=== PATIENT | male | born 1965 | race Caucasian/White ===

== ENCOUNTER → 2020-05-22 | Outpatient (CLI) | payer OTHER ==
--- NOTE | 2020-05-23 03:12 | MR ---
EXAMINATION TYPE: MR knee LT wo con DATE OF EXAM: 05/22/2020 COMPARISON: None HISTORY: Left knee pain, injured 3 months ago Multiplanar multiecho imaging of the left knee was performed with no contrast. There is moderate knee joint effusion. The anterior and posterior cruciate ligaments are intact. Jose Alejandro ateral ligaments are intact. There is some thinning and increased signal in the posterior horn medial meniscus. This is consistent with complex tear. The other menisci appear intact. There is minor spur ring at the patellofemoral joint. I see no focal bone destruction. There is subcutaneous edema around the anterior knee. There is 1.8 cm popliteal cyst. IMPRESSION: Complex tear of the posterior horn medial meniscus. Moderate size knee joint effusion with popliteal cyst. No evidence of ligamentous tear. No fracture seen. Minor osteoarthritis of the patellofemoral j oint.
== END | disposition home or self-care (01) ==
LOC: RADMRIMAIN 17:48
PROVIDERS: ATTEND Orthopaedic Surgery
DX: S83.232A Complex tear of medial meniscus, current injury, left knee, initial encounter (principal); M17.12 Unilateral primary osteoarthritis, left knee; M71.22 Synovial cyst of popliteal space [Baker], left knee

== ENCOUNTER → 2020-06-24 | Outpatient (CLI) | payer OTHER ==
[2020-06-24 14:01] LABS: Appearance,Urine Clear (Clear); Bilirubin,Urine Negative (Negative); Blood,Urine Negative (Negative); Color,Urine Light Yellow; Glucose,Urine (UA) Negative (Negative); Ketones,Urine Negative (Negative); Leukocyte Esterase,Urine Negative (Negative); Nitrite,Urine Negative (Negative); PH, Urine 5.5 (5.0-8.0); Protein,Urine Negative (Negative); Specific Gravity,Urine 1.012 (1.001-1.035); Urobilinogen,Urine <2.0 mg/dL (<2.0)
[2020-06-24 14:08] LABS: ALT 54 U/L (4-49); AST 40 U/L (17-59); African American GFR (CKD) >90 (>60 ml/min/1.73 sqM); Albumin 4.8 g/dL (3.5-5.0); Alkaline Phosphatase 93 U/L (38-126); Anion Gap 7 mmol/L; Blood Urea Nitrogen 21 mg/dL (9-20); Calcium 9.7 mg/dL (8.4-10.2); Carbon Dioxide 30 mmol/L (22-30); Chloride 101 mmol/L (98-107); Glucose 94 mg/dL (74-99); Non-African American GFR(CKD) >90 (>60 ml/min/1.73 sqM); Potassium 4.7 mmol/L (3.5-5.1); Sodium 138 mmol/L (137-145); Total Bilirubin 0.8 mg/dL (0.2-1.3); Total Protein 7.7 g/dL (6.3-8.2)
[2020-06-24 14:10] LABS: Partial Thromboplastin Time 24.9 sec (22.0-30.0)
[2020-06-24 14:21] LABS: HCT 40.4 % (39.0-53.0); HGB 14.1 gm/dL (13.0-17.5); MCH 31.3 pg (25.0-35.0); MCHC 34.8 g/dL (31.0-37.0); Mean Platelet Volume 6.4; Platelet Count 243 k/uL (150-450); RBC 4.49 m/uL (4.30-5.90); WBC 6.4 k/uL (3.8-10.6)
[2020-06-26 10:48] LABS: Hepatitis A Antibody IgM Non-Reactive (Non-Reactive); Hepatitis B Core IgM Non-Reactive (Non-Reactive); Hepatitis B Surface Antigen Non-Reactive (Non-Reactive); Hepatitis C IgG Antibody Non-Reactive (Non-Reactive)
== END | disposition home or self-care (01) ==
LOC: LABPAT 12:16
PROVIDERS: ATTEND Orthopaedic Surgery
DX: Z01.818 Encounter for other preprocedural examination (principal); M17.12 Unilateral primary osteoarthritis, left knee; Z01.812 Encounter for preprocedural laboratory examination
CPT/HCPCS: 36415; 80053; 80074; 81003; 85027; 85610; 85730; 87070

== ENCOUNTER 2020-07-17 10:55 | Day surgery (SDC) | payer OTHER ==
[2020-07-15 11:21] VITALS: BMI 28.1
[~2020-07-17 10:55] MED LIST: ACETAMINOPHEN TAB 500 MG TAB PO ONE; MELOXICAM 7.5 MG TAB PO ONE; ONDANSETRON 4 MG/2 ML VIAL IVP ONE; TRANEXAMIC ACID 1,000 MG in SODIUM CHLORIDE 0.9% 100 ML IVPB ONE
[2020-07-17] MEDS ORDERED: LACTATED RINGERS 1,000 ML IV ONE ×2 (11:44→16:50)
[2020-07-17] MEDS ORDERED: MIDAZOLAM 2 MG/2 ML VIAL IV ONE (11:54)
[2020-07-17] MEDS ORDERED: ONDANSETRON 4 MG/2 ML VIAL IVP ONE (12:18)
[2020-07-17] MEDS ORDERED: DEXAMETHASONE SOD PHOSPHATE 4 MG/ML 1 ML VIAL IV ONE (12:18)
[2020-07-17] MEDS ORDERED: SODIUM CHLORIDE 0.9% 100 ML BAG ONE (12:54)
[2020-07-17] MEDS ORDERED: TRANEXAMIC ACID 1,000 MG/10 ML VIAL ONE (12:54)
[2020-07-17] MEDS ORDERED: PROPOFOL 10 MG/ML 20 ML VIAL IV ONE (12:54)
[2020-07-17] MEDS ORDERED: MIDAZOLAM 2 MG/2 ML VIAL ONE (12:54)
[2020-07-17] MEDS: ROPIVACAINE 246.25 MG, EPINEPHrine 0.5 MG, KETOROLAC 30 MG, cloNIDine HCL/PF 80 MCG, WA... MISCELLANE ONE ×10 (14:11→14:33)
--- NOTE | 2020-07-17 14:47 | P.OP ---
Date of Procedure: 07/17/20 Implants: PREOPERATIVE DIAGNOSIS: Left knee severe osteoarthritis with genu varum POSTOPERATIVE DIAGNOSIS: Left knee severe osteoarthritis with genu varum OPERATION: Left knee cemented total replacement arthroplasty. ANESTHESIA: Spinal ESTIMATED BLOOD LOSS: 50 ml. [employer]: Katelynn Bruce PA-C (assistance with: patient positioning, retraction, exposure, hemostasis, leg positioning, implantation, irrigation, closure, dressing) COMPLICATIONS: None apparent. COMPONENTS IMPLANTED: Journey II total knee system from [employer] INDICATIONS: Mr. Kumar is a 55-year-old male with a history of left knee osteoarthritis. The patient's knee is end-stage, and conservative management has failed. The operation of knee replacement has been discussed at length in the office, as well as potential risks and complications. These are inclusive of, but not limited to: bleeding, infection, scarring, discomfort, blood vessel and nerve damage, need for further surgery, failure to relieve symptoms, persistence, recurrence, or worsening of problems, loosening, dislocation, wear, blood clot, pulmonary embolism, , gait dysfunction, stiffness, and other risks as discussed in the office. The patient elects to proceed and the consent form has been signed. PROCEDURE: The patient was taken to the operating room and positioned on the operating room table in the supine position. Anesthesia was initiated. Care was taken to make sure that all pressure points were adequately padded. The operative lower extremity was prepped and draped in the usual aseptic fashion using ChloraPrep. Ioban drape was used for the case and the patient received intravenous antibiotics within one hour of the incision. A pneumotourniquet and leg white were used for the case. The limb was exsanguinated with an Esmarch bandage and the tourniquet was inflated to 350 mmHg. Time-out was called confirming the patient's identity, side, procedure and administration of antibiotics and tranexamic acid. The incision was then created midline directly over the left knee, carried down through skin and into the subcutaneous tissues and down to fascia. Full thickness subcutaneous medial flap was developed. Medial parapatellar arthrotomy was performed and the interior of the knee was inspected. There was end-stage osteoarthritis of the knee with a mild to moderate genu varum type deformity. The fat pad was excised and proximal medial release on the tibia was completed using meticulous dissection and a curved osteotome. The anterior cruciate ligament was taken down. Note was made of significant attrition of the anterior and significant degenerative appearance of the cruciate ligaments. The exposure was excellent. The knee was flexed 90 degrees and the patella was everted. A spot was chosen on the femur approximately 1 cm anterior to the posterior cruciate ligament insertion and an intramedullary hole was created within the femur. The intramedullary guide was set to 5 degrees of valgus. The distal cutting block was attached and pinned into position. An appropriate amount of distal femoral r esection was set. The oscillating saw was then used to make the distal femoral cut. This cut was confirmed to be flat with the flat end of an osteotome. The retractors were placed around the tibia and the tibial surface was addressed. The angle and depth of resection was adjusted using an extramedullary cutting guide. The guide had a built-in 3 degree posterior slope cut. Once the cutting guide was adjusted appropriately and in line with the axis of the tibia and confirmed to be in good position in relation to the second metatarsal and transmalleolar axis, the tibial cut was then created with protection of the posterior neurovascular structures and the collateral ligaments. The tibial cut surface was removed and sized. Femoral sizing was then accomplished using posterior referencing. Care was taken to analyze the posterior condyles for signs of deficiency or severe wear, and adjustments to the guide were made, as appropriate. 3 degree external rotation pins were placed. The cutting jig for the femur was applied to these pins. The planned cuts were further analyzed prior to performing them with the oscillating saw. No femoral notching was produced. Bone fragments were removed and the cut surfaces were finished, as necessary, with a reciprocating saw. Spacer block technique was then used to confirm that the flexion and extension gaps were equal. Soft tissue releases and adjustment of the tibial and/or femoral cuts were made, as necessary, until the gaps were equal. This included release of the posterior cruciate ligament, which was excessively tight in this patient. The femur was then further finished for a posterior cruciate ligament substituting component. Patellar resurfacing was performed using a reamer. The size of the required patellar component was estimated and the patellar surface was then reamed down to a residual thickness which would recreate the little shell tribe thickness with the component. The exact placement of the patellar component was adjusted for position based on preoperative x-rays and intraoperative findings. Prior to placing trial components, anesthetic solution consisting of ropivicaine with epinephrine, ketorolac, and clonidine was injected carefully and methodically in a grid pattern using aspiration technique into the soft tissue around the knee circumferentially, starting with the deeper tissues first and progressing to fascia, and then finally the skin/subcutaneous tissue. Particular care was taken when injecting the posterior capsule. The trial components were inserted. The tibial tray was allowed to self center a nd the patella was noted to track very well. The position of the tibial component was marked and the tibia was then finished for a stemmed tibial component. Cement was mixed on the back table and applied to the final components. Trial components were removed and the cut surfaces of the bone were pulse lavaged thoroughly and dried. Cement was then applied to the tibial surface and pressurized into the surface using finger pressurization technique. The tibial component was then applied and excess cement was removed after it was impacted securely and noted to be flush with the cut surface. In similar fashion, the cement was applied to the cut femoral surface, pressurized in using finger pressurization and the component was impacted into place. Excess cement was removed. The polyethylene spacer was then implanted and locked into position. The patellar component was then applied in similar technique and a patellar clamp was used to hold the patella in place as the cement hardened. Once the cement had fully hardened, the knee was reinspected. Any other cement extrusion was removed and final kinematic testing showed range of motion from 0 to 130 degrees with excellent stability, both medially and laterally and appropriate alignment of the leg. Patellar tracking was excellent. The knee was then thoroughly pulse lavaged with normal saline. The tourniquet was deflated and hemostasis was obtained with electrocautery and IV tranexamic acid, 1 g given at the start of the operation and 1 g at the start of closure. Closure was with #2 Ethibond in the fascia/capsule and supplemented with #2 Quill, 2-0 Vicryl suture was used for the subcutaneous tissues and 3-0 Quill for the skin. Dermabond/Steri-Strips were then applied. A lightly compressive dressing was applied using Webril and an Hardy wrap. The patient was then transferred to stretcher and taken to the recovery room in stable condition. Sponge and needle counts were correct.
[2020-07-17] MEDS ORDERED: MAGNESIUM HYDROXIDE 2,400 MG/10 ML CUP PO PRN (15:16)
[2020-07-17] MEDS ORDERED: hydrOXYzine pamoate 25 MG CAP PO PRN (15:16)
[2020-07-17] MEDS ORDERED: NA PHOS,M-B/NA PHOS,DI-BA 133 ML ENEMA RECTAL PRN (15:16)
[2020-07-17] MEDS ORDERED: ONDANSETRON 4 MG/2 ML VIAL IVP PRN (15:16)
[2020-07-17] MEDS ORDERED: HYDROcodone/APAP 5-325MG 1 EACH TAB PO PRN (15:16)
[2020-07-17] MEDS ORDERED: bisacodyL 10 MG SUPP RECTAL PRN (15:16)
[2020-07-17] MEDS ORDERED: HYDROmorphone 0.5 MG/0.5 ML SYRINGE IVP PRN ×2 (15:16)
[2020-07-17] MEDS ORDERED: TEMAZEPAM 15 MG CAP PO PRN (15:16)
[2020-07-17] MEDS ORDERED: HYDROmorphone 1 MG/ML 1 ML SYRINGE IVP PRN (15:16)
[2020-07-17] MEDS ORDERED: NALOXONE 0.4 MG/ML 1 ML VIAL IV PRN (15:16)
[2020-07-17] MEDS ORDERED: ROPIVACAINE 0.2%-NS ON-Q PUMP 1,090 MG, EMPTY PAIN BALL 1 EACH MISCELLANE PRN (15:19)
--- NOTE | 2020-07-17 15:41 | XR ---
EXAMINATION TYPE: XR knee limited LT DATE OF EXAM: 07/17/2020 COMPARISON: None HISTORY: Evaluation. Abnormality in alignment TECHNIQUE: Two-view left knee FINDINGS: No acute fractures or dislocations are evident. Tibial femoral components are present. Post surgical soft tissue changes are evident. IMPRESSION: 1. Normal 2 view left knee
[2020-07-17] MEDS: LACTATED RINGERS 1,000 ML IV SCH (19:41)
[2020-07-17] MEDS: ASPIRIN 81 MG PO SCH (19:50)
--- NOTE | 2020-07-17 19:56 | P.ANPRN ---
Procedure Note - Anesthesia - Nerve Block Performed Left Adductor Canal Infusion Time Out Performed: Yes Date of Procedure: 07/17/20 Procedure Start Time: 11:53 Procedure Stop Time: 12:14 Location of Patient: PreOp Indication: Acute Post-Operative Pain, Requested by Surgeon Sedation Type: Sedate with meaningful contact maintained Preparation: Sterile Prep, Sterile Dressing Position: Supine Catheter: Indwelling Needle Types: On-Q Needle Gauge: 21 Ultrasound used to visualize needle placement: Yes Ultrasound used to observe medication spread: Yes Blood Aspirated: No Pain Paresthesia on Injection Noted: No Resistance on Injection: Normal Image Stored and Saved: Yes Events: Uneventful and Well Tolerated (ropi .5% 20cc plus dexamethasone 4mg)
[2020-07-17] MEDS ORDERED: SENNOSIDES-DOCUSATE SODIUM 1 EACH TAB PO SCH (21:00)
[2020-07-18] MEDS: LACTATED RINGERS 1,000 ML IV SCH (00:50)
[2020-07-18 01:51] VITALS: BP 94/54
[2020-07-18 05:58] LABS: Basophils % (A) 0 %; Eosinophils % (A) 0 %; HCT 36.6 % (39.0-53.0); HGB 12.3 gm/dL (13.0-17.5); Lymphocytes % (A) 6 %; MCH 30.6 pg (25.0-35.0); MCHC 33.6 g/dL (31.0-37.0); MCV 90.9 fL (80.0-100.0); Mean Platelet Volume 7.1; Monocytes # (A) 0.9 k/uL (0-1.0); Monocytes % (A) 6 %; Neutrophils % (A) 87 %; Platelet Count 227 k/uL (150-450); RBC 4.03 m/uL (4.30-5.90); RDW 12.1 % (11.5-15.5)
[2020-07-18 07:40] VITALS: PULSE 70; RESP 17; TEMP 98.1
--- NOTE | 2020-07-18 08:00 | CONS ---
CONSULTATION DATE OF SERVICE: 07/17/2020 REASON FOR CONSULTATION: Advice regarding DJD and other multiple medical issues, requested by Dr. White. HISTORY OF PRESENT ILLNESS: This is a 55-year-old gentleman with a past medical history of DJD being followed Dr. Yan in the outpatient setting Dr. Mohamud in the outpatient admitted with left total knee arthroplasty. The patient tolerated the procedure well. There is no history of chest pain, no history of palpitations, headache, loss of consciousness, seizures, nausea, vomiting, diarrhea, fever, rigors or chills. PAST MEDICAL HISTORY: History of degenerative joint disease. MEDICATIONS: Prior to admission include Motrin, Tylenol, Senna, Mobic, hydrocodone, aspirin. ALLERGIES: None. FAMILY HISTORY: History of liver cancer in the family. SOCIAL HISTORY: No history of smoking. No history of alcohol intake. REVIEW OF SYSTEMS: ENT: No diminished vision or hearing. CARDIOVASCULAR: No angina or palpitations. RESPIRATORY: No cough. GI: No nausea or vomiting. : No dysuria. NERVOUS SYSTEM: No numbness or weakness. ALLERGY/IMMUNOLOGY: No asthma or hayfever. MUSCULOSKELETAL: As mentioned earlier. HEMATOLOGY: No history of anemia. ENDOCRINE: No history of diabetes or hypothyroidism. CONSTITUTIONAL: As mentioned earlier. DERMATOLOGY: Negative. RHEUMATOLOGY: Negative. PSYCHIATRY: As mentioned earlier. PHYSICAL EXAMINATION: GENERAL: Patient is alert and oriented times three. VITAL SIGNS: Pulse 69, blood pressure 123/81, respirations 20, temperature 97.9, pulse ox 97% on room air HEENT: Conjunctivae normal. NECK: No jugular venous distention. RESPIRATORY: Breath sounds diminished at the bases. No rhonchi, no crackles. HEART: S1 and S2, muffled. ABDOMEN: Soft, no tenderness. No masses palpable. EXTREMITIES: Status post left total knee arthroplasty. NERVOUS: Higher functions as mentioned earlier. Moves all four limbs. No focal motor or sensory deficits. LYMPHATICS: No lymph nodes palpable in the neck or axillae. SKIN: No rashes. JOINTS: No active deforming arthropathy. LABS: Preoperative labs for hematology, oncology, chemistry and coags are within normal limits. Cholesterol was high at 225 last year. ASSESSMENT: 1. Status post left total knee arthroplasty. 2. History of hyperlipidemia. 3. History of degenerative joint disease. 4. FULL CODE. RECOMMENDATIONS AND DISCUSSION: This is a 55-year-old gentleman who presented with multiple medical issues, at this time I recommend to continue current medications and continue symptomatic treatment. Recommend DVT prophylaxis. Incentive spirometry. Closely follow with Dr. Yan after discharge and check cholesterol as an outpatient. Otherwise, we will follow the patient closely with you. Thank you Dr. White for letting us participate in the care of this patient. MMODL / IJN: [id number] /
[2020-07-18] MEDS: HYDROcodone/APAP 7.5-325MG 1 EACH TAB PO PRN ×2 (08:37→13:37)
[2020-07-18] MEDS: ASPIRIN 81 MG PO SCH (08:37)
[2020-07-18] MEDS ORDERED: MELOXICAM 7.5 MG TAB PO SCH (09:00)
--- NOTE | 2020-07-18 10:15 | P.DS ---
Providers Expected date of discharge: 07/18/20 Attending physician: Darvin White Consults: 07/17/20 15:16 Consult Physician Routine Consulting Provider: Charisma Aguirre Consult Reason/Comments: Medical management Do you want consulting provider notified?: Yes Primary care physician: Yuriy Tovar - Discharge Diagnosis(es) (1) Osteoarthritis of left knee Current Visit: Yes Status: Acute (2) S/P total knee arthroplasty Current Visit: Yes Status: Acute Hospital Course: This is a 55-year-old male with a known history of degenerative arthritis of the left knee. The patient presented for evaluation as an outpatient. After discussion and consideration patient elects to proceed with total knee arthroplasty. The patient is seen preoperatively by Dr. White and medically cleared for surgery by their primary care physician. Patient is admitted to [facility] 07/17/2020 for total knee arthroplasty. The procedure is performed without complication or sequelae. The patient is doing well postoperatively. Labs and vital signs are stable on day of discharge. On day of discharge patient's knee incision is healing well. There is minimal erythema. There is no drainage noted at this time. There is minimal soft tissue swelling to the knee. Patient has full foot and ankle motion without difficulty or pain. Calf is soft and nontender to palpation. Neurovascular status to the left lower extremity is intact. Patient is discharged home in good condition. Please see med rec for accurate list of home medications. Plan - Discharge Summary Discharge Rx Participant: Yes New Discharge Prescriptions: New Aspirin [Adult Low Dose Aspirin EC] 81 mg PO BID #60 tablet. Meloxicam [Mobic] 1 - 2 tab PO DAILY PRN #30 tab PRN Reason: Pain HYDROcodone/APAP 7.5-325MG [Fleming 7.5-325] 1 - 2 tab PO Q6HR PRN #42 tab PRN Reason: Pain Sennosides-Docusate Sodium [Senokot-S] 1 tab PO BID #60 tablet No Action Ibuprofen 600 mg PO Q8H PRN PRN Reason: Pain Diclofenac Sodium [Voltaren] 75 mg PO BID Acetaminophen [Tylenol] 325 - 650 mg PO Q4H PRN PRN Reason: Pain Discharge Medication List Acetaminophen [Tylenol] 325 - 650 mg PO Q4H PRN 07/15/20 [History] Diclofenac Sodium [Voltaren] 75 mg PO BID 07/15/20 [History] Ibuprofen 600 mg PO Q8H PRN 07/15/20 [History] Aspirin [Adult Low Dose Aspirin EC] 81 mg PO BID #60 tablet. 07/17/20 [Rx] HYDROcodone/APAP 7.5-325MG [Fleming 7.5-325] 1 - 2 tab PO Q6HR PRN #42 tab 07/17/20 [Rx] Meloxicam [Mobic] 1 - 2 tab PO DAILY PRN #30 tab 07/17/20 [Rx] Sennosides-Docusate Sodium [Senokot-S] 1 tab PO BID #60 tablet 07/17/20 [Rx] Follow up Appointment(s)/Referral(s): Katelynn Bruce, PAC [PHYSICIAN MENTAL TESTER] - 2 Weeks Activity/Diet/Wound Care/Special Instructions: May bear wt as tolerated w walker. May shower 48h post op. Leave Optifoam dressing intact 7-10 days. Discharge Disposition: HOME SELF-CARE
--- NOTE | 2020-07-18 10:43 | P.PN ---
Progress Note - Text 07/18/20 740am 55-year-old male status post total knee replacement by Dr. White. Patient has an On-Q pump for postop pain control with the solution running at 8 mL an hour with a VAS of 0. Patient has some discomfort in his thigh secondary to tourniquet. Plan to continue On-Q pump infusion
--- NOTE | 2020-07-18 21:35 | PN ---
PROGRESS NOTE DATE OF SERVICE: 07/18/2009 This 55-year-old gentleman who was admitted after left total knee arthroplasty, improving significantly. No chest pain. No palpitations. No fever. PHYSICAL EXAMINATION: Alert and oriented times three. Pulse 70. Blood pressure 92/54. Respirations 17. Temperature 98.1, pulse ox 94% on room air. HEENT: Conjunctivae normal. NECK: No JVD. CARDIOVASCULAR: S1, S2 muffled. Respirations: Breath sounds diminished in the bases. No rhonchi. No crackles. ABDOMEN: Soft. LEGS: Status post left total knee arthroplasty. NERVOUS SYSTEM: No focal deficits. LABS: WBC 16, hemoglobin 12.3. ASSESSMENT: 1. Status post left total knee arthroplasty. 2. Increased WBC, possibly reactive. 3. History of hyperlipidemia. 4. History of degenerative joint disease. 5. FULL CODE. RECOMMENDATIONS AND DISCUSSION: Recommend to continue current medications, management. Symptomatic treatment. I recommend incentive spirometry, DVT prophylaxis and rest of the recommendations per Orthopedic Surgery. Recommend close followup with primary physician as well. MMODL / IJN: [id number] /
== END 2020-07-18 14:07 | disposition home or self-care (01) ==
LOC: OR 10:55 → 4SSUR 15:03 → OR 07-18 14:07
PROVIDERS: ATTEND Orthopaedic Surgery
DX: M17.12 Unilateral primary osteoarthritis, left knee (principal); Z83.3 Family history of diabetes mellitus; Z82.49 Family history of ischemic heart disease and other diseases of the circulatory system; M21.162 Varus deformity, not elsewhere classified, left knee; Z79.82 Long term (current) use of aspirin; Z79.1 Long term (current) use of non-steroidal anti-inflammatories (NSAID); Z79.899 Other long term (current) drug therapy; Z80.0 Family history of malignant neoplasm of digestive organs; E78.5 Hyperlipidemia, unspecified
CPT/HCPCS: 97161; 64448; 76942; 85025; 88300; 73560; 27447; C1713; C1776; J2250; J0171; J1100; J0690 ×2; J2405; J1885; J2795 ×2; J2704; J0735